=== PATIENT | male | born 1980 | race Caucasian/White ===

== ENCOUNTER 2024-01-28 23:32 | Emergency (ER) | payer SELFPAY ==
[2024-01-28 23:38] VITALS: BP 125/84; PULSE 54; RESP 20; TEMP 97.5; BMI 26.2
[2024-01-29 02:57] LABS: URINE APPEARANCE CLEAR; URINE BILIRUBIN NEGATIVE (NEGATIVE); URINE COLOR YELLOW; URINE GLUCOSE (UA) NEGATIVE (NEGATIVE); URINE KETONE NEGATIVE (NEGATIVE); URINE LEUK ESTERASE NEGATIVE (NEGATIVE); URINE NITRITE NEGATIVE (NEGATIVE); URINE PROTEIN NEGATIVE (NEGATIVE)
== END 2024-01-29 03:47 | disposition home or self-care (01) ==
LOC: JER 23:32
DX: L29.1 Pruritus scroti (principal)
CPT/HCPCS: 81003; 87086; 99283-25